=== PATIENT | female | born 1980 | race Caucasian/White ===

== ENCOUNTER 2018-01-13 23:46 | Inpatient (IN) | payer BC ==
[2018-01-14] MEDS ORDERED: Penicillin G Potassium IV* 5,000,000 UNITS in NS 0.9% 100 ML* 100 ML IVPB ONE (00:03)
[2018-01-14] MEDS ORDERED: Oxytocin in LR* 20 UNITS/1,000 ML BAG IVPB ONE (00:28)
[2018-01-14] MEDS ORDERED: Misoprostol TAB* 200 MCG ONE ×2 (00:41→00:42)
[2018-01-14] MEDS ORDERED: Glycerin ADULT SUPP PR PRN (00:49)
[2018-01-14] MEDS ORDERED: Acetaminophen TAB* 325 MG PO PRN (00:49)
[2018-01-14] MEDS ORDERED: Misoprostol TAB* 200 MCG PR ONE (00:49)
[2018-01-14] MEDS ORDERED: Witch Hazel PAD* JAR TOPICAL PRN (00:49)
[2018-01-14] MEDS ORDERED: Dibucaine 1% 28.35 GM TUBE PR PRN (00:49)
[2018-01-14] MEDS ORDERED: Oxytocin in LR* 20 UNITS/1,000 ML BAG IVPB SCH (01:00)
[2018-01-14 01:05] LABS: ABS Basophils 0 10^3/ul (0-0.2); ABS Eosinophils 0.2 10^3/ul (0-0.6); ABS Lymphocytes 2.4 10^3/ul (1.0-4.8); ABS Monocytes 0.9 10^3/ul (0-0.8); ABS Neutrophils 7.6 10^3/ul (1.5-7.7); ABS Nucleated RBC 0 10^3/ul; Hematocrit 34 % (35-47); Lymphocyte % 21.5 % (25-47); Mean Corpuscular HGB Conc 32 g/dl (31-36); Mean Corpuscular Hemoglobin 26 pg (27-31); Mean Corpuscular Volume 79 fL (80-97); Mean Platelet Volume 9.1 um3 (7.4-10.4); Nucleated Red Blood Cells % 0.1; Platelet Count 241 10^3/ul (150-450); Red Blood Count 4.31 10^6/ul (4.00-5.40); Red Cell Distribution Width 14 % (10.5-15); White Blood Count 11.2 10^3/ul (3.5-10.8)
--- NOTE | 2018-01-14 01:12 | PROCNOTE ---
[facility]: Delivery Note - Delivery A Date of : 01/14/18 Time of : 00:22 Sex: Male Score 1 Minute: 8 Score 5 Minutes: 9 Gestational Age in Weeks and Days at Delivery: 38 Weeks and 4 Days Delivery Method: Spontaneous Vaginal Labor: Spontaneous Amniotic Fluid: Clear Estimated Blood Loss: 300 Anesthesia/Analgesia: Nitrous-Labor Delivered By: Claudine Mascorro - Nursery Level of Nursery: Regular/Bedside - Perineum Perineal Injury: 1st Degree Perineal Repair: By Delivering Practioner - Events Delivery Events of Note: Pitocin Only After Delivery, Precipitous Delivery, Antibiotics Indicated - Not Given - no time, Post- Bleeding - Meds Given - Additional Delivery Notes Additional Delivery Notes: Pt arrived at the hospital fully dilated. She had spontaneous ROM after arrival and began pushing. She pushed only about 5min to deliver the 's head in SOLANGE position with compound arm followed quickly by the shoulders and the rest of the body. The baby was placed on mom's abdomen. After the cord stopped pulsing it was clamped x2 and cut. The placenta delivered with gentle cord traction and fundal massage. There was brisk bleeding despite fundal massage so pitocin was started IV and cytotec was given, 800mcg rectally with good hemostasis. A small first degree lac was repaired in a [id number] fashion with 3-0 vicryl rapide.
--- NOTE | 2018-01-14 01:29 | HP ---
General Information - Reason for Visit Labor - General Information Maternal Age: 37 Grav: 5 Para: 1 SAB: 0 IEA: 3 Estimated Due Date: 01/24/18 Gestational Age in Weeks/Days: 38.6 Maternal Blood Type and Rh: O Positive - Results this Serology/RPR Result: Non-Reactive Rubella Result: Immune HBsAg Result: Negative HIV Result: Negative GBS Culture Result: Positive Past Medical History Delivery History: Hx Uncomplicated Vaginal Delivery Pertinent Past Medical History: Non-Contributory Pertinent Past Surgical History: None Pertinent Family History: Non-Contributory - Antepartal Records Antepartal Records: Reviewed, Uncomplicated Review of Systems Constitutional: Uncomfortable - from contractions/pushing Genitourinary: Bleeding, Leaking Fluid Musculoskeletal: Contractions - Comments Minimal ROS done due to precipitous delivery Exam Vital Signs 01/14/18 01:01 Temperature 98.7 F Pulse Rate 75 Respiratory 22 Rate Blood Pressure 100/69 (mmHg) Lab Values - Entire Visit: Laboratory Tests 01/14/18 01/14/18 00:13 00:13 WBC 11.2 H RBC 4.31 Hgb 11.0 L Hct 34 L MCV 79 L MCH 26 L MCHC 32 RDW 14 Plt Count 241 MPV 9.1 Neut % (Auto) 68.3 Lymph % (Auto) 21.5 L [place] % (Auto) 7.8 H Eos % (Auto) 2.0 Baso % (Auto) 0.4 Absolute Neuts (auto) 7.6 Absolute Lymphs (auto) 2.4 Absolute Monos (auto) 0.9 H Absolute Eos (auto) 0.2 Absolute Basos (auto) 0 Absolute Nucleated RBC 0 Nucleated RBC % 0.1 Blood Type O Positive - Measurements Height: 5 ft 4 in Weight: 174 lb Weight in lbs: 174.443901 Body Mass Index (BMI): 29.8 Pre- Weight: 152 lb Weight Gained This : 22 lbs and 0 ozs - Exam Breast: Breast Exam Deferred Heart: Normal Rhythm/Heart Sounds HEENT: No Significant Findings - Ultrasound/Biophysical Profile Ultrasound Status: Not Done Targeted Exam Findings Cervical Exam: Complete EFM Findings - External Monitor Findings Baseline Heart Rate: 140 External Monitor Findings: Accelerations Present, Variability Moderate Contractions: Regular Assessment/Plan - Assessment @38.6wks in active labor, fully dilated with precipitous delivery shortly after. See delivery note. GBS+ but no time for abx. - Obstetrical Risk Factors Obstetrical Risk Factors: GBS Positive - Plan Plan: Observe - Date/Time of Admission Date of Admission: 01/14/18 Time of Admission: 12:30
[2018-01-14] MEDS: Ibuprofen TAB* 600 MG PO PRN ×3 (02:07→20:12)
[2018-01-14] MEDS: Docusate CAP* 100 MG PO SCH ×3 (08:26→20:13)
[2018-01-14] MEDS ORDERED: Simethicone TAB* 80 MG TAB.CHEW PO SCH (08:30)
[2018-01-15 06:55] LABS: ABS Basophils 0 10^3/ul (0-0.2); ABS Eosinophils 0.3 10^3/ul (0-0.6); ABS Lymphocytes 2.4 10^3/ul (1.0-4.8); ABS Monocytes 0.6 10^3/ul (0-0.8); ABS Neutrophils 7.1 10^3/ul (1.5-7.7); ABS Nucleated RBC 0 10^3/ul; Eosinophil % 2.7 % (0-6); Hematocrit 29 % (35-47); Hemoglobin 9.6 g/dl (12.0-16.0); Lymphocyte % 23.4 % (25-47); Mean Corpuscular HGB Conc 34 g/dl (31-36); Mean Corpuscular Hemoglobin 26 pg (27-31); Mean Corpuscular Volume 78 fL (80-97); Mean Platelet Volume 8.5 um3 (7.4-10.4); Nucleated Red Blood Cells % 0.1; Platelet Count 223 10^3/ul (150-450); Red Blood Count 3.66 10^6/ul (4.00-5.40); Red Cell Distribution Width 14 % (10.5-15); White Blood Count 10.4 10^3/ul (3.5-10.8)
[2018-01-15] MEDS: Ferrous Gluconate TAB* 324 MG TAB PO SCH ×2 (08:58→20:26)
[2018-01-15] MEDS: Docusate CAP* 100 MG PO SCH ×3 (09:00→21:09)
[2018-01-15 13:07] VITALS: BP 127/87
[2018-01-15] MEDS: Ibuprofen TAB* 600 MG PO PRN (20:32)
[2018-01-16] MEDS: Ferrous Gluconate TAB* 324 MG TAB PO SCH (09:16)
[2018-01-16] MEDS: Docusate CAP* 100 MG PO SCH (09:18)
[2018-01-16] MEDS: Ibuprofen TAB* 600 MG PO PRN (10:26)
== END 2018-01-16 12:40 | disposition home or self-care (01) | DRG 560 ==
LOC: MCHOBOUT 23:46 → MCHOB 23:56
PROVIDERS: ADMIT Obstetrics & Gynecology; ATTEND Obstetrics & Gynecology
PROC: 10E0XZZ Delivery of Products of Conception, External Approach (ICD-10-PCS; principal; 2018-01-14)
PROC: 0HQ9XZZ Repair Perineum Skin, External Approach (ICD-10-PCS; 2018-01-14)
PROC: 4A1HXCZ Monitoring of Products of Conception, Cardiac Rate, External Approach (ICD-10-PCS; 2018-01-14)
DX: O62.3 Precipitate labor (principal); O72.1 Other immediate postpartum hemorrhage; Z37.0 Single live birth; O99.824 Streptococcus B carrier state complicating childbirth; O32.6XX0 Maternal care for compound presentation, not applicable or unspecified; O32.2XX0 Maternal care for transverse and oblique lie, not applicable or unspecified; O90.81 Anemia of the puerperium; O70.0 First degree perineal laceration during delivery; Z3A.38 38 weeks gestation of pregnancy
CPT/HCPCS: 36415; 85025; 86850; 86900; 86901; A9270-GY; J2540